=== PATIENT | female | born 1975 | race Two or more races ===

== ENCOUNTER 2019-09-09 11:03 | Emergency (ER) | payer MEDICAID, OTHER ==
[~2019-09-09] VITALS: Ht 157.5 cm; Wt 56.0 kg
[2019-09-09 11:29] VITALS: BP 141/83
[2019-09-09] MEDS ORDERED: LIDOCAINE HCL 1% 20ML VIAL (Pyxis) INJ INFIL ONE (12:15)
[2019-09-09] MEDS ORDERED: CEFTRIAXONE SODIUM 1 G/VIAL IM ONE (12:15)
== END 2019-09-09 12:44 | disposition home or self-care (01) ==
LOC: ER 11:12
DX: L03.211 Cellulitis of face (principal); K04.7 Periapical abscess without sinus; E11.9 Type 2 diabetes mellitus without complications
CPT/HCPCS: 96372; 99283; J0696; J3490

== ENCOUNTER 2025-03-07 21:18 | Emergency (ER) | payer MEDICAID, OTHER ==
[~2025-03-07] VITALS: Ht 152.4 cm; Wt 50.0 kg
[2025-03-07 21:23] VITALS: O2SAT 100
[2025-03-07 23:05] LABS: BASOPHILS % 0.6 % (0.0-2.0); EOSINOPHILS % 3.4 % (0.0-5.0); HEMATOCRIT. 37.2 % (36.0-48.0); HEMOGLOBIN. 11.8 g/dL (12.0-16.0); LYMPHOCYTES % 31.4 % (20.0-50.0); MEAN PLATELET VOLUME 9.7 fl (7.4-10.4); MONOCYTES % 5.6 % (2.0-8.0); NEUTROPHILS % 59.0 % (40.0-76.0); PLATELET 256 x1000/uL (130-400); RED BLOOD CELL COUNT 4.96 mill/uL (4.2-5.4); RED CELL DISTRIBUTION WIDTH 14.9 % (11.6-14.6)
[2025-03-07 23:24] LABS: CREATININE 0.7 mg/dL (0.6-1.0)
[2025-03-07 23:25] LABS: UREA NITROGEN BLOOD 7 mg/dL (9-23)
[2025-03-07 23:42] LABS: HCG SCREEN NEGATIVE
[2025-03-08] MEDS: VISCOUS LIDOCAINE 2% 15 ML UDC MM ONE (00:20)
[2025-03-08 01:08] VITALS: BP 128/72; PULSE 68; RESP 20; TEMP 36.9; O2SAT 100
== END 2025-03-08 01:11 | disposition home or self-care (01) ==
LOC: ER 21:18
DX: R09.A2 Foreign body sensation, throat (principal); E11.9 Type 2 diabetes mellitus without complications; R13.19 Other dysphagia; M54.2 Cervicalgia
CPT/HCPCS: 36415; 70360; 70490; 80048; 84703; 85025; 99284